=== PATIENT | female | born 1985 ===

== ENCOUNTER 2022-06-04 11:20 | Outpatient (CLI) | payer OTHER | END 2022-06-04 11:33 | disposition home or self-care (01) | LOC: MAMO-SONO 11:20 | PROVIDERS: ATTEND Obstetrics & Gynecology | DX: N60.11 Diffuse cystic mastopathy of right breast (principal); N60.12 Diffuse cystic mastopathy of left breast ==

== ENCOUNTER 2024-02-05 10:00 | Outpatient (CLI) | payer OTHER | END 2024-02-05 10:02 | disposition home or self-care (01) | LOC: MAMO-SONO 10:00 | PROVIDERS: ATTEND Obstetrics & Gynecology | DX: N60.11 Diffuse cystic mastopathy of right breast (principal); N60.12 Diffuse cystic mastopathy of left breast ==